=== PATIENT | male | born 1965 | race Caucasian/White ===

== ENCOUNTER 2020-02-06 12:39 | Inpatient (IN) | payer MEDICARE ==
--- NOTE | 2020-02-06 12:49 | ED ---
General Adult HPI - General Chief complaint: Upper Respiratory Infection Stated complaint: fever, covid exposure Time Seen by Provider: 02/06/20 12:49 Source: patient Mode of arrival: ambulatory Limitations: language barrier - History of Present Illness Initial comments: Patient is a 54-year-old male with history of Down syndrome presenting to emergency from a chief complaint of Covid exposure. Patient lives in a snf with a caregiver who brought him for evaluation. She states the patient was definitively exposed 5 days ago to someone who tested positive for Covid. States the patient had developed fevers over the last few days. He does have history of asthma as well but no COPD or smoking exposure. Caregiver states she contacted the primary care physician who advised her to bring the patient for evaluation if he has oxygen saturation below 94%. States that he was 90% rest at home. States the patient did have a fever and gave him 1 g of Tylenol about 3 hours prior to arrival. She denies any nausea vomiting diarrhea. States the patient says yes to everything when questioned. States that she can hear to patient wheezing occasionally, particularly in the morning. - Related Data Home Medications Medication Instructions Recorded Confirmed Albuterol Sulfate [Ventolin HFA] 2 puff INHALATION RT-Q4H PRN 02/06/20 02/06/20 Calcium Carbonate/Vitamin D3 1 tab PO DAILY@0800 02/06/20 02/06/20 [Calcium 600-Vit D3 800 Caplet] Cetirizine HCl [Zyrtec] 10 mg PO DAILY@0800 02/06/20 02/06/20 Omeprazole 20 mg PO DAILY@0800 02/06/20 02/06/20 Simvastatin [Zocor] 10 mg PO DAILY@0800 02/06/20 02/06/20 Allergies Allergy/AdvReac Type Severity Reaction Status Date / Time No Known Allergies Allergy Verified 02/06/20 13:56 Review of Systems ROS Statement: Those systems with pertinent positive or pertinent negative responses have been documented in the HPI. ROS Other: All systems not noted in ROS Statement are negative. Past Medical History Past Medical History: Asthma History of Any Multi-Drug Resistant Organisms: None Reported Past Surgical History: Hernia Repair Past Psychological History: No Psychological Hx Reported Smoking Status: Never smoker Past Alcohol Use History: None Reported Past Drug Use History: None Reported General Exam Limitations: language barrier General appearance: alert, in no apparent distress Head exam: Present: atraumatic, normocephalic, normal inspection Eye exam: Present: normal appearance, PERRL, EOMI Pupils: Present: normal accommodation ENT exam: Present: normal exam, normal oropharynx, mucous membranes moist, TM's normal bilaterally, normal external ear exam Neck exam: Present: normal inspection, full ROM. Absent: tenderness Respiratory exam: Present: normal lung sounds bilaterally. Absent: respiratory distress, wheezes, rales, rhonchi, stridor Cardiovascular Exam: Present: regular rate, normal rhythm, normal heart sounds. Absent: systolic murmur, diastolic murmur GI/Abdominal exam: Present: soft. Absent: distended, tenderness, guarding, rebound, rigid Extremities exam: Present: normal inspection, full ROM, normal capillary refill. Absent: tenderness, pedal edema, joint swelling, calf tenderness Back exam: Present: normal inspection, full ROM. Absent: tenderness, CVA tenderness (R), CVA tenderness (L), muscle spasm, paraspinal tenderness, vertebral tenderness Neurological exam: Present: alert, oriented X3 Psychiatric exam: Present: normal affect, normal mood. Absent: depressed, agitated Skin exam: Present: warm, dry, intact, normal color Course Vital Signs 02/06/20 02/06/20 02/06/20 12:40 13:32 13:45 Temperature 97.4 F L Pulse Rate 91 99 Respiratory 18 Rate Blood Pressure 120/79 127/85 O2 Sat by Pulse 94 L 92 L 95 Oximetry 02/06/20 14:00 Temperature Pulse Rate 92 Respiratory Rate Blood Pressure 127/85 O2 Sat by Pulse 95 Oximetry Medical Decision Making - Medical Decision Making 54-year-old male with history of Down's syndrome presenting to the emergency department chief complaint of fevers. On physical examination, patient is not in respiratory distress. However, he does appear to be slightly short of breath. He is 94% on room air at rest. CBC is unremarkable. Elevation in LDH and CRP. Patient is positive for covid-19. Chest x-ray reveals a right upper lobe opacity likely pneumonia. There is also potential for some pulmonary hypertension. Coags within normal limits. Elevated d-dimer is 0.81. CT will not be performed at this time because the elevator markers likely due to the pneumonia. Caregiver is not able to take the patient home because there are several other residents for Covid free at this time. Patient will be admitted for further medical management. Case discussed with Dr. Poe Admitting physician is - Lab Data Result diagrams: 02/06/20 13:45 02/06/20 13:45 Lab Results 02/06/20 02/06/20 02/06/20 Range/Units 13:38 13:45 13:45 WBC 4.6 (3.8-10.6) k/uL RBC 5.12 (4.30-5.90) m/uL Hgb 14.8 (13.0-17.5) gm/dL Hct 45.8 (39.0-53.0) % MCV 89.5 (80.0-100.0) fL MCH 29.0 (25.0-35.0) pg MCHC 32.4 (31.0-37.0) g/dL RDW 14.8 (11.5-15.5) % Plt Count 192 (150-450) k/uL MPV 8.4 Neutrophils % 51 % Lymphocytes % 34 % Monocytes % 10 % Eosinophils % 0 % Basophils % 2 % Neutrophils # 2.3 (1.3-7.7) k/uL Lymphocytes # 1.5 (1.0-4.8) k/uL Monocytes # 0.5 (0-1.0) k/uL Eosinophils # 0.0 (0-0.7) k/uL Basophils # 0.1 (0-0.2) k/uL PT 9.7 (9.0-12.0) sec INR 0.9 (<1.2) APTT 30.0 (22.0-30.0) sec D-Dimer 0.81 H (<0.60) mg/L FEU Sodium (137-145) mmol/L Potassium (3.5-5.1) mmol/L Chloride (98-107) mmol/L Carbon Dioxide (22-30) mmol/L Anion Gap mmol/L BUN (9-20) mg/dL Creatinine (0.66-1.25) mg/dL Est GFR (CKD-EPI)AfAm (>60 ml/min/1.73 sqM) Est GFR (CKD-EPI)NonAf (>60 ml/min/1.73 sqM) Glucose (74-99) mg/dL Plasma Lactic Acid Mitch (0.7-2.0) mmol/L Calcium (8.4-10.2) mg/dL Magnesium (1.6-2.3) mg/dL Total Bilirubin (0.2-1.3) mg/dL AST (17-59) U/L ALT (4-49) U/L Alkaline Phosphatase (38-126) U/L Lactate Dehydrogenase (313-618) U/L C-Reactive Protein (<10.0) mg/L Total Protein (6.3-8.2) g/dL Albumin (3.5-5.0) g/dL Coronavirus (PCR) Detected A (Not Detectd) 02/06/20 02/06/20 Range/Units 13:45 13:45 WBC (3.8-10.6) k/uL RBC (4.30-5.90) m/uL Hgb (13.0-17.5) gm/dL Hct (39.0-53.0) % MCV (80.0-100.0) fL MCH (25.0-35.0) pg MCHC (31.0-37.0) g/dL RDW (11.5-15.5) % Plt Count (150-450) k/uL MPV Neutrophils % % Lymphocytes % % Monocytes % % Eosinophils % % Basophils % % Neutrophils # (1.3-7.7) k/uL Lymphocytes # (1.0-4.8) k/uL Monocytes # (0-1.0) k/uL Eosinophils # (0-0.7) k/uL Basophils # (0-0.2) k/uL PT (9.0-12.0) sec INR (<1.2) APTT (22.0-30.0) sec D-Dimer (<0.60) mg/L FEU Sodium 139 (137-145) mmol/L Potassium 4.4 (3.5-5.1) mmol/L Chloride 110 H (98-107) mmol/L Carbon Dioxide 25 (22-30) mmol/L Anion Gap 4 mmol/L BUN 22 H (9-20) mg/dL Creatinine 0.95 (0.66-1.25) mg/dL Est GFR (CKD-EPI)AfAm >90 (>60 ml/min/1.73 sqM) Est GFR (CKD-EPI)NonAf >90 (>60 ml/min/1.73 sqM) Glucose 117 H (74-99) mg/dL Plasma Lactic Acid Mitch 1.2 (0.7-2.0) mmol/L Calcium 7.6 L (8.4-10.2) mg/dL Magnesium 1.9 (1.6-2.3) mg/dL Total Bilirubin 0.3 (0.2-1.3) mg/dL AST 53 (17-59) U/L ALT 51 H (4-49) U/L Alkaline Phosphatase 74 (38-126) U/L Lactate Dehydrogenase 677 H (313-618) U/L C-Reactive Protein 74.3 H (<10.0) mg/L Total Protein 6.1 L (6.3-8.2) g/dL Albumin 3.0 L (3.5-5.0) g/dL Coronavirus (PCR) (Not Detectd) Disposition Clinical Impression: Pneumonia due to COVID-19 virus Disposition: ADMITTED IP TO THIS HOSP Condition: Good Is patient prescribed a controlled substance at d/c from ED?: No Referrals: Mirtha Huff MD [Primary Care Provider] - 1-2 days Time of Disposition: 15:43
[2020-02-06] MEDS ORDERED: ALBUTEROL HFA INHALER INHALATION STA (13:03)
[2020-02-06 13:53] LABS: Basophils # (A) 0.1 k/uL (0-0.2); Basophils % (A) 2 %; Eosinophils % (A) 0 %; HCT 45.8 % (39.0-53.0); HGB 14.8 gm/dL (13.0-17.5); Lymphocytes # (A) 1.5 k/uL (1.0-4.8); Lymphocytes % (A) 34 %; MCHC 32.4 g/dL (31.0-37.0); MCV 89.5 fL (80.0-100.0); Mean Platelet Volume 8.4; Monocytes # (A) 0.5 k/uL (0-1.0); Monocytes % (A) 10 %; Neutrophils # (A) 2.3 k/uL (1.3-7.7); Neutrophils % (A) 51 %; Platelet Count 192 k/uL (150-450); RBC 5.12 m/uL (4.30-5.90); RDW 14.8 % (11.5-15.5); WBC 4.6 k/uL (3.8-10.6)
--- NOTE | 2020-02-06 14:06 | XR ---
EXAMINATION TYPE: XR chest 1V portable DATE OF EXAM: 02/06/2020 COMPARISON: Chest x-ray 05/04/2012 HISTORY: Fever, hypoxemia Single frontal view of the chest Rounded area of increased density present in the right upper lobe, question some patchy basilar dens ity. There is no pneumothorax or pleural effusion. Prominence of the pulmonary artery may be due to p ulmonary artery hypertension. IMPRESSION: Findings may be indicative of pneumonia, follow-up to resolution to exclude mass. Possib le pulmonary artery hypertension.
[2020-02-06 14:13] LABS: ALT 51 U/L (4-49); AST 53 U/L (17-59); African American GFR (CKD) >90 (>60 ml/min/1.73 sqM); Alkaline Phosphatase 74 U/L (38-126); Anion Gap 4 mmol/L; Blood Urea Nitrogen 22 mg/dL (9-20); C Reactive Protein 74.3 mg/L (<10.0); Calcium 7.6 mg/dL (8.4-10.2); Carbon Dioxide 25 mmol/L (22-30); Chloride 110 mmol/L (98-107); Glucose 117 mg/dL (74-99); LDH 677 U/L (313-618); Magnesium 1.9 mg/dL (1.6-2.3); Non-African American GFR(CKD) >90 (>60 ml/min/1.73 sqM); Potassium 4.4 mmol/L (3.5-5.1); Sodium 139 mmol/L (137-145); Total Bilirubin 0.3 mg/dL (0.2-1.3); Total Protein 6.1 g/dL (6.3-8.2)
[2020-02-06 14:16] LABS: INR 0.9 (<1.2); Prothrombin Time 9.7 sec (9.0-12.0)
[2020-02-06 14:20] LABS: D-Dimer 0.81 mg/L FEU (<0.60)
[2020-02-06] MEDS ORDERED: NALOXONE 0.4 MG/ML 1 ML VIAL IV PRN ×2 (15:38→16:36)
[2020-02-06] MEDS ORDERED: ACETAMINOPHEN TAB 325 MG TAB PO PRN (15:38)
[2020-02-06] MEDS ORDERED: ONDANSETRON 4 MG/2 ML VIAL IVP PRN (15:38)
[2020-02-06] MEDS ORDERED: MORPHINE SULFATE 4 MG/ML SYRINGE IV PRN (15:38)
[2020-02-06] MEDS ORDERED: LORazepam Vial 2 MG/ML VIAL IV PRN (15:38)
[2020-02-06] MEDS ORDERED: dexAMETHasone 2 MG TAB PO STA (16:05)
--- NOTE | 2020-02-06 16:49 | P.HPIM ---
History of Present Illness H&P Date: 02/06/20 Chief Complaint: covid 54-year-old male with history of Down syndrome presenting to emergency from a chief complaint of Covid exposure. Patient lives in a shelter with a c aregiver who brought him for evaluation. She states the patient was definitively exposed 5 days ago to someone who tested positive for Covid. States the patient had developed fevers over the last few days. Also has been having a cough. No significant sob. He does have history of asthma as well but no COPD or smoking exposure. Caregiver states she contacted the primary care physician who advised her to bring the patient for evaluation if he has oxygen saturation below 94%. States that he was 90% rest at home. States the patient did have a fever and gave him 1 g of Tylenol about 3 hours prior to arrival to the ER. She denies any nausea vomiting diarrhea. States the patient says yes to everything when questioned and that he is not a reliable historian which is his baseline. States that she can hear to patient wheezing occasionally, particularly in the morning. In the ER his Pox was 92-94% on RA. CXR showed RUL pneumonia. Labs showed elevated d-dimer at 0.81, LDH 677, CRP 74. rest of labs ok. EKG NSR. He will be admitted for further evaluation and treatment. Review of Systems Complete ROS performed, pertinent positives per HPI otherwise negative. Past Medical History Past Medical History: Asthma History of Any Multi-Drug Resistant Organisms: None Reported Past Surgical History: Hernia Repair Past Psychological History: No Psychological Hx Reported Smoking Status: Never smoker Past Alcohol Use History: None Reported Past Drug Use History: None Reported Medications and Allergies Home Medications Medication Instructions Recorded Confirmed Type Albuterol Sulfate [Ventolin HFA] 2 puff INHALATION RT-Q4H PRN 02/06/20 02/06/20 History Calcium Carbonate/Vitamin D3 1 tab PO DAILY@0800 02/06/20 02/06/20 History [Calcium 600-Vit D3 800 Caplet] Cetirizine HCl [Zyrtec] 10 mg PO DAILY@0800 02/06/20 02/06/20 History Omeprazole 20 mg PO DAILY@0800 02/06/20 02/06/20 History Simvastatin [Zocor] 10 mg PO DAILY@0800 02/06/20 02/06/20 History Allergies Allergy/AdvReac Type Severity Reaction Status Date / Time No Known Allergies Allergy Verified 02/06/20 13:56 Physical Exam Vitals: Vital Signs Temp Pulse Resp BP Pulse Ox 02/06/20 16:00 93 118/85 96 02/06/20 15:30 105 H 118/87 94 L 02/06/20 15:00 91 129/53 92 L 02/06/20 14:30 129/53 95 02/06/20 14:00 92 127/85 95 02/06/20 13:45 99 127/85 95 02/06/20 13:32 92 L 02/06/20 12:40 97.4 F L 91 18 120/79 94 L Intake and Output 02/06/20 02/06/20 02/06/20 06:59 14:59 22:59 Other: Weight 96.751 kg Constitutional: No acute distress, conversant, pleasant Eyes:Anicteric sclerae, moist conjunctiva, no lid-lag, PERRLA, ENMT: Oropharynx clear, no erythema, exudates Neck: Supple, FROM, no masses, or JVD, No carotid bruits, No thyromegaly Lungs: Clear to auscultation, Clear to percussion, Normal respiratory effort, no accessory muscle use Cardiovascular: Heart regular in rate and rhythm, No murmurs, gallops, or rubs, No peripheral edema Abdominal: Soft, Nontender, no guarding, rebound or rigidity, Normoactive bowel sounds, No hepatomegaly, No splenomegaly, No palpable mass Skin: Normal temperature, tone, texture, turgor, no induration, No subcutaneous nodules, No rash, lesions, No ulcers Extremities: No digital cyanosis, No clubbing, Pedal pulses intact and symmetrical, Radial pulses intact and symmetrical, No calf tenderness Psychiatric: Alert and oriented to person, appropriate affect, intact judgement Neuro: Muscles Strength 5/5 in all 4 extremities, Sensation to light touch grossly present throughout, Cranial nerves II-XII grossly intact, no focal sensory deficits Results CBC & Chem 7: 02/06/20 13:45 02/06/20 13:45 Labs: Abnormal Lab Results - Last 24 Hours (Table) 02/06/20 02/06/20 02/06/20 Range/Units 13:38 13:45 13:45 D-Dimer 0.81 H (<0.60) mg/L FEU Chloride 110 H (98-107) mmol/L BUN 22 H (9-20) mg/dL Glucose 117 H (74-99) mg/dL Calcium 7.6 L (8.4-10.2) mg/dL ALT 51 H (4-49) U/L Lactate Dehydrogenase 677 H (313-618) U/L C-Reactive Protein 74.3 H (<10.0) mg/L Total Protein 6.1 L (6.3-8.2) g/dL Albumin 3.0 L (3.5-5.0) g/dL Coronavirus (PCR) Detected A (Not Detectd) Assessment and Plan Plan: Covid 19 pneumonia Start Decadron per protocol Remdisivir not indicated as patient not severely ill or hypoxic. Monitor pulse ox Albuterol when necessary Mild intermittent asthma Currently not in acute exacerbation Albuterol when necessary Allergies Hyperlipidemia Stable Resume meds DVT prophylaxis Lovenox subcu Admitted to inpatient expected length of stay more than 2 midnights. Anticiptated discharge 2-3 days Dispo: Back to the shelter
[2020-02-06 20:16] LABS: Ferritin 613.6 ng/mL (22.0-322.0)
[2020-02-07 09:13] LABS: Basophils # (A) 0.1 k/uL (0-0.2); Basophils % (A) 2 %; Eosinophils % (A) 0 %; HCT 47.1 % (39.0-53.0); HGB 15.4 gm/dL (13.0-17.5); Lymphocytes # (A) 0.8 k/uL (1.0-4.8); Lymphocytes % (A) 33 %; MCH 29.5 pg (25.0-35.0); MCHC 32.6 g/dL (31.0-37.0); MCV 90.4 fL (80.0-100.0); Mean Platelet Volume 7.7; Monocytes # (A) 0.2 k/uL (0-1.0); Monocytes % (A) 6 %; Neutrophils # (A) 1.4 k/uL (1.3-7.7); Neutrophils % (A) 55 %; Platelet Count 203 k/uL (150-450); RBC 5.21 m/uL (4.30-5.90); RDW 14.5 % (11.5-15.5); WBC 2.5 k/uL (3.8-10.6)
[2020-02-07] MEDS: LORATADINE 10 MG TAB PO SCH (09:20)
[2020-02-07] MEDS: DEXAMETHASONE SOD PHOSPHATE 10 MG/ML 1 ML VIAL IV SCH (09:20)
[2020-02-07] MEDS: CALCIUM CARB-VIT D 500MG-200UN 1 EACH TAB PO SCH (09:21)
[2020-02-07] MEDS: ATORVASTATIN 10 MG TAB PO SCH (09:21)
[2020-02-07] MEDS: PANTOPRAZOLE 40 MG TABLET PO SCH (09:21)
[2020-02-07] MEDS: ENOXAPARIN 40 MG/0.4 ML SYRINGE SQ SCH (09:21)
[2020-02-07] MEDS: ALBUTEROL HFA INHALER INHALATION PRN ×2 (12:46→16:00)
[2020-02-07 16:28] LABS: Magnesium 1.8 mg/dL (1.5-2.4); Phosphorus 2.6 mg/dL (2.4-5.1)
[2020-02-07 16:29] LABS: African American GFR (CKD) 116.6 (60.0-200.0); Albumin 3.5 g/dL (3.80-4.90); Albumin/Globulin Ratio 1.4 (1.60-3.17); Anion Gap 6.8 mmol/L (4.00-12.00); Calcium 8.1 mg/dL (8.7-10.3); Carbon Dioxide 27.2 mmol/L (21.6-31.8); Globulin 2.5 g/dL (1.6-3.3); Non-African American GFR(CKD) 100.6 (60.0-200.0); Potassium 4.4 mmol/L (3.5-5.5); Total Bilirubin 0.2 mg/dL (0.2-1.2)
--- NOTE | 2020-02-07 16:38 | P.PN ---
Subjective Progress Note Date: 02/07/20 Principal diagnosis: sob Nurse reported that patient started becoming tachypneic after coming back from the bathroom this morning. He is still requiring 2 L of oxygen. Objective - Vital Signs Vital signs: Vital Signs Temp 98.0 F 02/07/20 15:42 Pulse 82 02/07/20 15:42 Resp 16 02/07/20 15:42 BP 118/75 02/07/20 15:42 Pulse Ox 92 L 02/07/20 15:42 Intake & Output 02/06/20 02/07/20 02/07/20 18:59 06:59 18:59 Weight 96.751 kg 96.751 kg Other: Voiding Method Toilet Urinal # Voids 1 # Bowel Movements 0 1 - Exam Constitutional: No acute distress, conversant, pleasant Eyes:Anicteric sclerae, moist conjunctiva, no lid-lag, PERRLA, ENMT: Oropharynx clear, no erythema, exudates Neck: Supple, FROM, no masses, or JVD, No carotid bruits, No thyromegaly Lungs: Clear to auscultation, Clear to percussion, Normal respiratory effort, no accessory muscle use Cardiovascular: Heart regular in rate and rhythm, No murmurs, gallops, or rubs, No peripheral edema Abdominal: Soft, Nontender, no guarding, rebound or rigidity, Normoactive bowel sounds, No hepatomegaly, No splenomegaly, No palpable mass Skin: Normal temperature, tone, texture, turgor, no induration, No subcutaneous nodules, No rash, lesions, No ulcers Extremities: No digital cyanosis, No clubbing, Pedal pulses intact and symmetrical, Radial pulses intact and symmetrical, No calf tenderness Psychiatric: Alert and oriented to person, appropriate affect, intact judgement Neuro: Muscles Strength 5/5 in all 4 extremities, Sensation to light touch grossly present throughout, Cranial nerves II-XII grossly intact, no focal sensory deficits - Labs CBC & Chem 7: 02/07/20 08:43 02/07/20 08:43 Labs: Abnormal Lab Results - Last 24 Hours (Table) 02/06/20 02/06/20 02/07/20 Range/Units 13:38 13:45 08:43 WBC 2.5 L (3.8-10.6) k/uL Lymphocytes # 0.8 L (1.0-4.8) k/uL BUN/Creatinine Ratio (12.00-20.00) Ratio Glucose (70-110) mg/dL Calcium (8.7-10.3) mg/dL Ferritin 613.6 H (22.0-322.0) ng/mL AST (14-35) U/L ALT (10-49) U/L Total Protein (6.2-8.2) g/dL Albumin (3.80-4.90) g/dL Albumin/Globulin Ratio (1.60-3.17) g/dL Procalcitonin 0.10 H (0.02-0.09) ng/mL 02/07/20 Range/Units 08:43 WBC (3.8-10.6) k/uL Lymphocytes # (1.0-4.8) k/uL BUN/Creatinine Ratio 25.00 H (12.00-20.00) Ratio Glucose 145 H (70-110) mg/dL Calcium 8.1 L (8.7-10.3) mg/dL Ferritin (22.0-322.0) ng/mL AST 40 H (14-35) U/L ALT 53 H (10-49) U/L Total Protein 6.0 L (6.2-8.2) g/dL Albumin 3.50 L (3.80-4.90) g/dL Albumin/Globulin Ratio 1.40 L (1.60-3.17) g/dL Procalcitonin (0.02-0.09) ng/mL Assessment and Plan Plan: Covid 19 pneumonia Continue Decadron per protocol Remdisivir not indicated as patient not severely ill or hypoxic. Monitor pulse ox Albuterol when necessary Mild intermittent asthma Currently not in acute exacerbation Albuterol when necessary Allergies Hyperlipidemia Stable Resume meds DVT prophylaxis Lovenox subcu Anticiptated discharge 1-2 days Dispo: Back to the skilled nursing
[2020-02-08] MEDS: DEXAMETHASONE SOD PHOSPHATE 10 MG/ML 1 ML VIAL IV SCH ×2 (09:23→09:24)
[2020-02-08] MEDS: PANTOPRAZOLE 40 MG TABLET PO SCH (09:23)
[2020-02-08] MEDS: ATORVASTATIN 10 MG TAB PO SCH (09:23)
[2020-02-08] MEDS: CALCIUM CARB-VIT D 500MG-200UN 1 EACH TAB PO SCH (09:23)
[2020-02-08] MEDS: LORATADINE 10 MG TAB PO SCH (09:23)
[2020-02-08] MEDS: ENOXAPARIN 40 MG/0.4 ML SYRINGE SQ SCH (09:24)
[2020-02-08] MEDS: ALBUTEROL HFA INHALER INHALATION PRN (09:56)
[2020-02-08 10:05] VITALS: BMI 41.6
[2020-02-08 13:07] VITALS: BP 122/85; PULSE 71; RESP 18; TEMP 98
--- NOTE | 2020-02-08 16:54 | P.DS ---
Providers Date of admission: 02/06/20 15:45 Expected date of discharge: 02/08/20 Attending physician: Sammy Briscoe MD Primary care physician: Mirtha Huff [facility] Course: 54-year-old male with history of Down syndrome presenting to emergency from a chief complaint of Covid exposure. Patient lives in a [facility] with a caregiver who brought him for evaluation. She states the patient was definitively exposed 5 days ago to someone who tested positive for Covid. States the patient had developed fevers over the last few days. Also has been having a cough. No significant sob. He does have history of asthma as well but no COPD or smoking exposure. Caregiver states she contacted the primary care physician who advised her to bring the patient for evaluation if he has oxygen saturation below 94%. States that he was 90% rest at home. States the patient did have a fever and gave him 1 g of Tylenol about 3 hours prior to arrival to the ER. She denies any nausea vomiting diarrhea. States the patient says yes to everything when questioned and that he is not a reliable historian which is his baseline. States that she can hear to patient wheezing occasionally, particularly in the morning. In the ER his Pox was 92-94% on RA. CXR showed RUL pneumonia. Labs showed elevated d-dimer at 0.81, LDH 677, CRP 74. rest of labs ok. EKG NSR. He will be admitted for further evaluation and treatment. Upon admission he required 2 L of oxygen per nasal cannula. Patient was treated with Decadron IV and Lovenox subcu as well. Follow-up labs showed some leukopenia. This is classically seen with coronavirus infection. According to nursing staff on the first day of hospitalization patient was becoming short- winded when he comes back from the bathroom. This improved significantly today. Patient has been able to walk through the halls without difficulty. He is currently on room air. Family was contacted and patient will be discharged back home today. He will be on the same medication regimen as prior to admission. Patient Condition at Discharge: Good Plan - Discharge Summary Discharge Rx Participant: No New Discharge Prescriptions: Continue Simvastatin [Zocor] 10 mg PO DAILY@0800 Cetirizine HCl [Zyrtec] 10 mg PO DAILY@0800 Albuterol Sulfate [Ventolin HFA] 2 puff INHALATION RT-Q4H PRN PRN Reason: Shortness Of Breath Omeprazole 20 mg PO DAILY@0800 Calcium Carbonate/Vitamin D3 [Calcium 600-Vit D3 800 Caplet] 1 tab PO DAILY@0800 Discharge Medication List Albuterol Sulfate [Ventolin HFA] 2 puff INHALATION RT-Q4H PRN 02/06/20 [History] Calcium Carbonate/Vitamin D3 [Calcium 600-Vit D3 800 Caplet] 1 tab PO DAILY@0800 02/06/20 [History] Cetirizine HCl [Zyrtec] 10 mg PO DAILY@0800 02/06/20 [History] Omeprazole 20 mg PO DAILY@0800 02/06/20 [History] Simvastatin [Zocor] 10 mg PO DAILY@0800 02/06/20 [History] Follow up Appointment(s)/Referral(s): Mirtha Huff MD [Primary Care Provider] - 1-2 days Activity/Diet/Wound Care/Special Instructions: pt lives at [facility] and they will transport the pt at time of d/c - please call
== END 2020-02-08 18:27 | disposition home or self-care (01) | DRG 177 ==
LOC: EC 12:39 → EEVIPCON 12:39 → 6NMEDSUR 15:45
PROVIDERS: ADMIT Internal Medicine; ATTEND Internal Medicine
DX: U07.1 COVID-19 (principal); J12.89 Other viral pneumonia; Q90.9 Down syndrome, unspecified; J45.20 Mild intermittent asthma, uncomplicated; E78.5 Hyperlipidemia, unspecified; Z79.899 Other long term (current) drug therapy; Z98.890 Other specified postprocedural states; Z87.19 Personal history of other diseases of the digestive system
CPT/HCPCS: 36415; 71045; 80053; 82728; 83605; 83615; 83735; 84100; 84145; 85025; 85379; 85610; 85730; 86140; 87635; 93005; 94640; 99284

== ENCOUNTER 2021-12-05 17:19 | Emergency (ER) | payer MEDICARE, OTHER ==
[2021-12-05 17:56] VITALS: TEMP 98.4
--- NOTE | 2021-12-05 18:30 | XR ---
EXAMINATION TYPE: XR chest 2V DATE OF EXAM: 12/05/2021 COMPARISON: 02/06/2020 HISTORY: Cough TECHNIQUE: FINDINGS: There is a patchy airspace infiltrate in the left lower lobe. There is also minimal infiltr ate medial right lower lobe. No heart failure. Heart size is normal. The bony thorax is intact. No pl eural effusion. IMPRESSION: Bilateral lower lobe pneumonia which is more on the left side. There is a changing patter n of pneumonia compared to old exam. Normal heart.
[2021-12-05] MEDS ORDERED: LEVOFLOXACIN 750 MG TAB PO STA (19:53)
[2021-12-05 20:01] VITALS: RESP 18
--- NOTE | 2021-12-05 20:02 | ED ---
General Adult HPI - General Chief complaint: Upper Respiratory Infection Stated complaint: SOB/Low O2 Time Seen by Provider: 12/05/21 19:35 Source: patient Mode of arrival: ambulatory Limitations: no limitations - History of Present Illness Initial comments: 56-year-old male presents emergency department with cough and shortness of breath. He does have a history of Down syndrome and therefore his dad is at bedside and present history. [facility] reported that the patient was having cough and shortness of breath throughout the week. They took him to his primary care doctor who stated that he had clear lungs. He was not placed on any medications. Over the course of the week he has had development of worsening shortness of breath, productive cough and pleuritic chest pain. No cardiac history. Patient not taking any medications at home for his symptoms. No alleviating, precipitating or modifying factors - Related Data Home Medications Medication Instructions Recorded Confirmed Albuterol Sulfate [Ventolin HFA] 2 puff INHALATION RT-Q4H PRN 02/06/20 02/06/20 Calcium Carbonate/Vitamin D3 1 tab PO DAILY@0800 02/06/20 02/06/20 [Calcium 600-Vit D3 20 Mcg (800 Iu)] Cetirizine HCl [Zyrtec] 10 mg PO DAILY@0800 02/06/20 02/06/20 Omeprazole 20 mg PO DAILY@0800 02/06/20 02/06/20 Simvastatin [Zocor] 10 mg PO DAILY@0800 02/06/20 02/06/20 Previous Rx's Medication Instructions Recorded Levofloxacin [Levaquin] 750 mg PO DAILY 1 Days #5 tab 12/05/21 Allergies Allergy/AdvReac Type Severity Reaction Status Date / Time No Known Allergies Allergy Verified 12/05/21 17:56 Review of Systems ROS Statement: Those systems with pertinent positive or pertinent negative responses have been documented in the HPI. ROS Other: All systems not noted in ROS Statement are negative. Past Medical History Past Medical History: Asthma, GERD/Reflux, Hyperlipidemia Additional Past Medical History / Comment(s): Down's syndrome/oriented to person and place/has mental capabilities of about a 3-6 year old/pt walks/talks but speech can be difficult to understand d/t thickened tongue/does some signing/continent of urine and stool, sinus allergies. History of Any Multi-Drug Resistant Organisms: None Reported Past Surgical History: Hernia Repair Additional Past Surgical History / Comment(s): L abdominal hernia repair, cyst removed R side posterior neck. Past Anesthesia/Blood Transfusion Reactions: No Reported Reaction Past Psychological History: No Psychological Hx Reported Smoking Status: Never smoker Past Alcohol Use History: None Reported Past Drug Use History: None Reported - Past Family History Mother Additional Family Medical History / Comment(s): Biological mother is alive. She has mental health issues. Pt was raised by his mother's sister in law. Father Family Medical History: No Reported History Additional Family Medical History / Comment(s): Father is alive and healthy. General Exam Limitations: no limitations General appearance: alert, in no apparent distress Head exam: Present: atraumatic, normocephalic, normal inspection Eye exam: Present: normal appearance, PERRL, EOMI. Absent: scleral icterus, conjunctival injection, periorbital swelling ENT exam: Present: normal exam, mucous membranes moist Neck exam: Present: normal inspection. Absent: tenderness, meningismus, lymphadenopathy Respiratory exam: Present: wheezes, rales (at the bilateral bases). Absent: respiratory distress, rhonchi, stridor Cardiovascular Exam: Present: normal rhythm, tachycardia, normal heart sounds. Absent: systolic murmur, diastolic murmur, rubs, gallop, clicks GI/Abdominal exam: Present: soft, normal bowel sounds. Absent: distended, tenderness, guarding, rebound, rigid Extremities exam: Present: normal inspection, full ROM, normal capillary refill. Absent: tenderness, pedal edema, joint swelling, calf tenderness Back exam: Present: normal inspection Neurological exam: Present: alert, oriented X3, CN II-XII intact Psychiatric exam: Present: normal affect, normal mood Skin exam: Present: warm, dry, intact, normal color. Absent: rash Course Vital Signs 12/05/21 12/05/21 12/05/21 17:54 19:37 20:00 Temperature 98.4 F Pulse Rate 113 H 107 H Respiratory 22 18 Rate Blood Pressure 142/91 O2 Sat by Pulse 93 L 96 Oximetry 12/05/21 20:14 Temperature Pulse Rate 102 H Respiratory 18 Rate Blood Pressure 132/76 O2 Sat by Pulse 98 Oximetry Medical Decision Making - Medical Decision Making Upon arrival patient placed into room 4. Her history and physical exam was performed. Patient is swabbed Covid which is negative. Chest x-ray demonstrates pneumonia. Recommended laboratory studies however patient refused and at bedside is agreeable to not perform any labs. It would like to attempt outpatient treatment. He'll be placed on antibiotics at this time. Needs follow up with primary care doctor in 2-4 days and return for any new or worsening symptoms. Family and patient were agreeable the patient was discharged home in stable condition - Lab Data Lab Results 12/05/21 Range/Units 17:58 Coronavirus (PCR) Not Detected (Not Detectd) Disposition Clinical Impression: Pneumonia, Tachycardia Disposition: HOME SELF-CARE Condition: Stable Instructions (If sedation given, give patient instructions): Bacterial Pneumonia (ED) Additional Instructions: Take the antibiotics as directed and follow up with primary care doctor in 2-4 days. Use the albuterol inhaler every 4 hours. Return for any new or worsening symptoms Prescriptions: Levofloxacin [Levaquin] 750 mg PO DAILY 1 Days #5 tab Is patient prescribed a controlled substance at d/c from ED?: No Referrals: Mirtha Huff MD [Primary Care Provider] - 1-2 days Time of Disposition: 20:02
[2021-12-05 20:27] VITALS: BP 132/76; PULSE 102
== END 2021-12-05 20:14 | disposition home or self-care (01) ==
LOC: EC 17:19
DX: J18.9 Pneumonia, unspecified organism (principal); R00.0 Tachycardia, unspecified; J45.909 Unspecified asthma, uncomplicated; E78.5 Hyperlipidemia, unspecified; K21.9 Gastro-esophageal reflux disease without esophagitis; Z79.899 Other long term (current) drug therapy; Z79.51 Long term (current) use of inhaled steroids; Z20.822 Contact with and (suspected) exposure to COVID-19
CPT/HCPCS: 71046; 87635; 99285

== ENCOUNTER 2022-01-17 20:11 | Emergency (ER) | payer MEDICARE, OTHER ==
[2022-01-17 20:17] VITALS: BP 127/79; TEMP 97.6
[2022-01-17] MEDS ORDERED: SODIUM CHLORIDE 0.9% 500 ML 500 ML IV STA (20:30)
[2022-01-17] MEDS ORDERED: IPRATROPIUM-ALBUTEROL 3 ML NEB INHALATION STA (20:30)
[2022-01-17] MEDS ORDERED: methylPREDNISolone SOD SUCCI 125 MG/2 ML VIAL IV STA (20:30)
--- NOTE | 2022-01-17 20:39 | ED ---
General Adult HPI - General Chief complaint: Upper Respiratory Infection Stated complaint: Cough,PCP sent Time Seen by Provider: 01/17/22 20:18 Source: patient, family, RN notes reviewed, old records reviewed Mode of arrival: ambulatory Limitations: no limitations - History of Present Illness Initial comments: Patient is a 56-year-old male with past medical history remarkable for Down syndrome, asthma, acid reflux who presents emergency Department complaining of upper respiratory symptoms. Patient presents with his caregivers. For multiple days, patient has been having cough is not improving. Unknown if he is coughing anything up. No lower extremity swelling. He denies chest pain. No nausea or vomiting. No diarrhea. Slightly decreased appetite. Denies fevers. Does have a history of pneumonias. Patient presents for further evaluation at this time. He was at an urgent care who was concerned with possible pneumonia and sent him here for further evaluation.Patient's had decreased oral intake over this period of time.Patient was diagnosed with pneumonia back in early December and symptoms resolved. However it did start come back over the last few days. - Related Data Home Medications Medication Instructions Recorded Confirmed Albuterol Sulfate [Ventolin HFA] 2 puff INHALATION RT-Q4H PRN 02/06/20 02/06/20 Calcium Carbonate/Vitamin D3 1 tab PO DAILY@0800 02/06/20 02/06/20 [Calcium 600-Vit D3 20 Mcg (800 Iu)] Cetirizine HCl [Zyrtec] 10 mg PO DAILY@0800 02/06/20 02/06/20 Omeprazole 20 mg PO DAILY@0800 02/06/20 02/06/20 Simvastatin [Zocor] 10 mg PO DAILY@0800 02/06/20 02/06/20 Previous Rx's Medication Instructions Recorded Levofloxacin [Levaquin] 750 mg PO DAILY 1 Days #5 tab 12/05/21 Albuterol Inhaler [Ventolin Hfa 1 puff INHALATION TID #8 gm 01/17/22 Inhaler] Cefuroxime [Ceftin] 500 mg PO BID 7 Days #28 tab 01/17/22 Doxycycline Hyclate 100 mg PO BID 7 Days #14 capsule 01/17/22 predniSONE [Deltasone] 40 mg PO DAILY 4 Days #8 tab 01/17/22 Allergies Allergy/AdvReac Type Severity Reaction Status Date / Time No Known Allergies Allergy Verified 01/17/22 20:17 Review of Systems ROS Statement: Those systems with pertinent positive or pertinent negative responses have been documented in the HPI. ROS Other: All systems not noted in ROS Statement are negative. Past Medical History Past Medical History: Asthma, GERD/Reflux, Hyperlipidemia Additional Past Medical History / Comment(s): Down's syndrome/oriented to person and place/has mental capabilities of about a 3-6 year old/pt walks/talks but speech can be difficult to understand d/t thickened tongue/does some signing/continent of urine and stool, sinus allergies. History of Any Multi-Drug Resistant Organisms: None Reported Past Surgical History: Hernia Repair Additional Past Surgical History / Comment(s): L abdominal hernia repair, cyst removed R side posterior neck. Past Anesthesia/Blood Transfusion Reactions: No Reported Reaction Past Psychological History: No Psychological Hx Reported Smoking Status: Never smoker Past Alcohol Use History: None Reported Past Drug Use History: None Reported - Past Family History Mother Additional Family Medical History / Comment(s): Biological mother is alive. She has mental health issues. Pt was raised by his mother's sister in law. Father Family Medical History: No Reported History Additional Family Medical History / Comment(s): Father is alive and healthy. General Exam - General Exam Comments Initial Comments: General: Appears in no acute distress. HEAD: Normal with no signs of head trauma. EYES: PERRLA, EOMI, conjunctiva normal, no discharge. ENT: Hearing grossly intact, normal oropharynx. RESPIRATORY: Mild end expiratory wheezing. No respiratory distress. No hypoxia. C/V: Regular rate and rhythm. S1 and S2 auscultated, no edema, peripheral pulses 2+ and intact throughout ABD: Abd is soft, nontender, nondistended EXT: Normal range of motion, no obvious deformity SKIN: No rashes or lesions observed on exposed skin. NEURO: Alert and oriented x 4. Limitations: no limitations Course Vital Signs 01/17/22 01/17/22 01/17/22 20:14 22:16 23:19 Temperature 97.6 F Pulse Rate 115 H 100 96 Respiratory 20 18 Rate Blood Pressure 127/79 O2 Sat by Pulse 95 96 Oximetry 01/17/22 23:28 Temperature Pulse Rate 94 Respiratory Rate Blood Pressure O2 Sat by Pulse Oximetry Medical Decision Making - Medical Decision Making Based on the patient's presentation and physical exam, does appear that the patient is having an acute infectious process currently causing his symptoms. Family was told that it could be heart failure by the outside urgent care. No history of cardiac disease for the patient. He is having a cough. Has a history of asthma. Discussed with the family and we will screen the patient's heart failure with a BNP and EKG. We will obtain chest x-ray as well as infectious labs. Patient was in agreement this plan. Patient's family was in agreement this plan. Vital signs within acceptable limits. He'll be symptomatically treated for his asthma with steroids, breathing treatments. The patient does not tolerate being poked with an IV, and there was a delay in obtaining blood work. We did only semi-essentials to begin with, including CBC, CMP, lactic acid, viral swabs. Family was in agreement this plan. EKG was obtained and showed sinus tachycardia. Patient does become more tachycardic when medical staff or nearby. When he is not being provoked, tachycardia resolves. Likely related to anxiety, and patient's family does endorse that he has a lot of anxiety around program medical director. Chest x-ray as interpreted by myself reveals chronic pulmonary markings with an acute left lower lobe pneumonia. When compared with old chest x-rays, the pulmonary markings have been there. No obvious bony traumatic injury. No pneumothorax. EKG showed no signs of acute ischemia. Laboratory studies were remarkable for no evidence of leukocytosis. White blood cell count is within normal limits. Patient is not acidotic. Lactic acid is slightly elevated at 3.4, however I believe this is likely secondary to dehydration and not secondary to infection. Remainder the labs are unremarkable. Vital signs remained within acceptable limits.Patient's viral swabs are negative. Reevaluation come patient is resting comfortably. He has drunk multiple cups of water. I discussed results with the patient as well as family. I believe it is safe for him to be discharged home on oral antibiotics. However strict return precautions were discussed and I do want the patient to follow up with PCP in the next 1-2 days. They were in agreement this plan. No respiratory distress. Wheezing is improved. Vital signs have normalized. Patient is walking around the room with no acute complaints. They would like to take him home. I believe this is reasonable. I will provide the patient with a prescription for cefuroxime, doxycycline,, prednisone. I instructed the patient to follow up with their PCP in the next 1-3 days. I explained that the patient should return to the emergency department i f they experience any worsening symptoms. Strict return precautions were discussed with the patient. The patient expressed understanding of these instructions. I answered all questions that the patient had. The patient was discharged home in good condition with their prescriptions and follow up info rmation. - Lab Data Result diagrams: 01/17/22 22:25 01/17/22 22:27 Lab Results 01/17/22 01/17/22 01/17/22 Range/Units 22:25 22: 22:27 WBC 7.1 (3.8-10.6) k/uL RBC 4.07 L (4.30-5.90) m/uL Hgb 11.5 L (13.0-17.5) gm/dL Hct 35.8 L (39.0-53.0) % MCV 87.9 (80.0-100.0) fL MCH 28.2 (25.0-35.0) pg MCHC 32.1 (31.0-37.0) g/dL RDW 15.9 H (11.5-15.5) % Plt Count 115 L (150-450) k/uL MPV 9.7 Neutrophils % Not Reportable Neutrophils % (Manual) 52 % Band Neuts % (Manual) 2 % Lymphocytes % Not Reportable Lymphocytes % (Manual) 42 % Monocytes % Not Reportable Monocytes % (Manual) 4 % Eosinophils % Not Reportable Basophils % Not Reportable Neutrophils # Not Reportable Neutrophils # (Manual) 3.80 (1.3-7.7) k/uL Lymphocytes # Not Reportable Lymphocytes # (Manual) 2.98 (1.0-4.8) k/uL Monocytes # Not Reportable Monocytes # (Manual) 0.28 (0-1.0) k/uL Eosinophils # Not Reportable Basophils # Not Reportable Nucleated RBCs 0 (0-0) /100 WBC Manual Slide Review Performed Hypochromasia Moderate Sodium 139 (137-145) mmol/L Potassium 4.5 (3.5-5.1) mmol/L Chloride 108 H (98-107) mmol/L Carbon Dioxide 21 L (22-30) mmol/L Anion Gap 10 mmol/L BUN 19 (9-20) mg/dL Creatinine 0.79 (0.66-1.25) mg/dL Est GFR (CKD-EPI)AfAm >90 (>60 ml/min/1.73 sqM) Est GFR (CKD-EPI)NonAf >90 (>60 ml/min/1.73 sqM) Glucose 142 H (74-99) mg/dL Plasma Lactic Acid Mitch 3.4 H* (0.7-2.0) mmol/L Calcium 8.1 L (8.4-10.2) mg/dL Magnesium 1.8 (1.6-2.3) mg/dL Total Bilirubin 0.5 (0.2-1.3) mg/dL AST 35 (17-59) U/L ALT 29 (4-49) U/L Alkaline Phosphatase 113 (38-126) U/L NT-Pro-B Natriuret Pep pg/mL Total Protein 7.0 (6.3-8.2) g/dL Albumin 3.2 L (3.5-5.0) g/dL Influenza Type A (PCR) (Not Detectd) Influenza Type B (PCR) (Not Detectd) RSV (PCR) (Not Detectd) SARS-CoV-2 (PCR) (Not Detectd) 01/17/22 01/17/22 Range/Units 22:48 22:52 WBC (3.8-10.6) k/uL RBC (4.30-5.90) m/uL Hgb (13.0-17.5) gm/dL Hct (39.0-53.0) % MCV (80.0-100.0) fL MCH (25.0-35.0) pg MCHC (31.0-37.0) g/dL RDW (11.5-15.5) % Plt Count (150-450) k/uL MPV Neutrophils % Neutrophils % (Manual) % Band Neuts % (Manual) % Lymphocytes % Lymphocytes % (Manual) % Monocytes % Monocytes % (Manual) % Eosinophils % Basophils % Neutrophils # Neutrophils # (Manual) (1.3-7.7) k/uL Lymphocytes # Lymphocytes # (Manual) (1.0-4.8) k/uL Monocytes # Monocytes # (Manual) (0-1.0) k/uL Eosinophils # Basophils # Nucleated RBCs (0-0) /100 WBC Manual Slide Review Hypochromasia Sodium (137-145) mmol/L Potassium (3.5-5.1) mmol/L Chloride (98-107) mmol/L Carbon Dioxide (22-30) mmol/L Anion Gap mmol/L BUN (9-20) mg/dL Creatinine (0.66-1.25) mg/dL Est GFR (CKD-EPI)AfAm (>60 ml/min/1.73 sqM) Est GFR (CKD-EPI)NonAf (>60 ml/min/1.73 sqM) Glucose (74-99) mg/dL Plasma Lactic Acid Mitch (0.7-2.0) mmol/L Calcium (8.4-10.2) mg/dL Magnesium (1.6-2.3) mg/dL Total Bilirubin (0.2-1.3) mg/dL AST (17-59) U/L ALT (4-49) U/L Alkaline Phosphatase (38-126) U/L NT-Pro-B Natriuret Pep 97 pg/mL Total Protein (6.3-8.2) g/dL Albumin (3.5-5.0) g/dL Influenza Type A (PCR) Not Detected (Not Detectd) Influenza Type B (PCR) Not Detected (Not Detectd) RSV (PCR) Not Detected (Not Detectd) SARS-CoV-2 (PCR) Not Detected (Not Detectd) - EKG Data -: EKG Interpreted by Me EKG Comments: 12-lead Electrocardiogram Interpretation Note EKG was reviewed and interpreted by myself. 12-lead ECG performed at 2212 is interpreted by me as revealing sinus tachycardia at a rate of 120 beats per minute. Pickerel is normal. OR interval is 143 ms, QRS durations 110 ms, QTc is 377 ms. There were no ST or T wave abnormalities to suggest myocardial ischemia or injury. R wave progression across the precordium was satisfactory. By my interpretation this EKG is non-diagnostic for acute ischemia. When compared with EKG from February 2020, no significant change. Disposition Clinical Impression: Asthma exacerbation, Pneumonia, Dehydration Disposition: HOME SELF-CARE Condition: Good Instructions (If sedation given, give patient instructions): Community Acquired Pneumonia (ED) Prescriptions: Cefuroxime [Ceftin] 500 mg PO BID 7 Days #28 tab predniSONE [Deltasone] 40 mg PO DAILY 4 Days #8 tab Doxycycline Hyclate 100 mg PO BID 7 Days #14 capsule Albuterol Inhaler [Ventolin Hfa Inhaler] 1 puff INHALATION TID #8 gm Is patient prescribed a controlled substance at d/c from ED?: No Referrals: Navarro Wagner MD [Primary Care Provider] - 1-2 days Time of Disposition: 23:45
--- NOTE | 2022-01-17 22:28 | XR ---
EXAMINATION TYPE: XR chest 1V DATE OF EXAM: 01/17/2022 COMPARISON: 12/05/2021 HISTORY: Cough short of breath TECHNIQUE: Single view FINDINGS: There is some airspace consolidation in the left lower lung field. There is some minimal in filtrate right lung base. Heart size is normal. No heart failure. Mediastinum is normal. There is no pleural effusion. IMPRESSION: Bilateral lower lobe pneumonia much worse on the left side and increased compared to old exam.
[2022-01-17] MEDS ORDERED: methylPREDNISolone SOD SUCCI 125 MG/2 ML VIAL IM ONE (22:39)
[2022-01-17 22:40] LABS: ALT 29 U/L (4-49); African American GFR (CKD) >90 (>60 ml/min/1.73 sqM); Albumin 3.2 g/dL (3.5-5.0); Anion Gap 10 mmol/L; Blood Urea Nitrogen 19 mg/dL (9-20); Calcium 8.1 mg/dL (8.4-10.2); Carbon Dioxide 21 mmol/L (22-30); Chloride 108 mmol/L (98-107); Glucose 142 mg/dL (74-99); Non-African American GFR(CKD) >90 (>60 ml/min/1.73 sqM); Sodium 139 mmol/L (137-145); Total Bilirubin 0.5 mg/dL (0.2-1.3)
[2022-01-17 22:42] LABS: AST 35 U/L (17-59); Alkaline Phosphatase 113 U/L (38-126); Magnesium 1.8 mg/dL (1.6-2.3); Potassium 4.5 mmol/L (3.5-5.1)
[2022-01-17 22:49] LABS: HCT 35.8 % (39.0-53.0); HGB 11.5 gm/dL (13.0-17.5); Hypochromasia Moderate; MCH 28.2 pg (25.0-35.0); MCHC 32.1 g/dL (31.0-37.0); MCV 87.9 fL (80.0-100.0); Mean Platelet Volume 9.7; Platelet Count 115 k/uL (150-450); RBC 4.07 m/uL (4.30-5.90); RDW 15.9 % (11.5-15.5); WBC 7.1 k/uL (3.8-10.6)
[2022-01-17 23:08] LABS: Band Neutrophils % 2 %; Lymphocytes # (M) 2.98 k/uL (1.0-4.8); Monocytes # (M) 0.28 k/uL (0-1.0); Neutrophils % (M) 52 %; Nucleated Red Blood Cells 0 /100 WBC (0-0); Total Cells Counted 100
[2022-01-17 23:16] VITALS: RESP 18
[2022-01-17 23:29] VITALS: PULSE 94
[2022-01-17] MEDS ORDERED: CEFUROXIME 750 MG VIAL IM STA (23:57)
[2022-01-17] MEDS ORDERED: DOXYCYCLINE 100 MG CAP PO STA (23:57)
== END 2022-01-18 00:19 | disposition home or self-care (01) ==
LOC: EC 20:11
DX: J45.901 Unspecified asthma with (acute) exacerbation (principal); J18.9 Pneumonia, unspecified organism; E86.0 Dehydration; K21.9 Gastro-esophageal reflux disease without esophagitis; E78.5 Hyperlipidemia, unspecified; Z79.51 Long term (current) use of inhaled steroids; Z79.899 Other long term (current) drug therapy; Z20.822 Contact with and (suspected) exposure to COVID-19
CPT/HCPCS: 36415; 94640; 93005; 83880; 80053; 83605; 83735; 85025; 87636; 71045; 99284; 96372 ×2; J2930; J0697